=== PATIENT | female | born 1955 | race Caucasian/White ===

== ENCOUNTER 2019-01-25 21:49 | Inpatient (IN) ==
[2019-01-25] MEDS ORDERED: predniSONE 20 MG TABLET PO ONE (21:54)
[2019-01-25] MEDS ORDERED: Ipratropium/Albuterol Neb 3 ML IH ONE (21:54)
--- NOTE | 2019-01-25 21:55 | Emergency Department Note ---
Disposition Clinical Impression: Acute exacerbation of chronic obstructive airways disease Disposition: Admitted As Inpatient Condition: Good Time of Disposition: 06:02 General Adult HPI - General Stated complaint: KEN Time Seen by Provider: 01/25/19 21:52 - Related Data Home Medications Medication Instructions Recorded Confirmed Albuterol Sulfate [Ventolin Hfa] 1 inh IH BID 01/26/19 01/26/19 Citalopram [CeleXA] 10 mg PO DAILY 01/26/19 01/26/19 Fluticasone/Vilanterol [Breo 1 inh IH HS 01/26/19 01/26/19 Ellipta 100-25 Mcg INH] Levothyroxine [Synthroid] 75 mcg PO DAILY 01/26/19 01/26/19 Magnesium Oxide 01/26/19 01/26/19 Tiotropium [Spiriva] 1 inh IH DAILY 01/26/19 01/26/19 Allergies Allergy/AdvReac Type Severity Reaction Status Date / Time No Known Allergies Allergy Verified 07/12/18 12:59 Past Medical History - Past Medical History Medical history: Reports: COPD - Social History Smoking Status: Current every day smoker Alcohol use: Reports: rarely Drug use: Reports: none Course Vital Signs Temperature 97.7 F 01/25/19 21:54 Pulse Rate 98 01/25/19 21:54 Respiratory Rate 18 01/25/19 21:54 Blood Pressure 136/72 01/25/19 21:54 O2 Sat by Pulse Oximetry 89 01/25/19 21:54 Temperature 98.6 F 01/26/19 03:25 Pulse Rate 86 01/26/19 03:25 Respiratory Rate 17 01/26/19 03:25 Blood Pressure 136/76 01/26/19 03:25 O2 Sat by Pulse Oximetry 94 01/26/19 03:25 Oxygen Delivery Oxygen Delivery Nasal Cannula Medical Decision Making - Lab Data Result diagrams: 01/25/19 22:00 01/25/19 22:00 Lab Results 01/25/19 01/25/19 01/25/19 Range/Units 22:00 22:00 22:00 WBC 9.7 (4.3-11.1) K/mcL RBC 4.53 (3.82-4.97) M/mcL Hgb 13.9 (11.5-15.4) g/dL Hct 40.4 (35.3-44.9) % MCV 89.2 (83.0-100.0) fL MCH 30.7 (28.0-33.3) pg MCHC 34.4 (31.6-35.5) g/dL RDW 13.6 (11.5-14.5) % Plt Count 292 (140-400) K/mcL MPV 9.6 (9.4-12.4) fL Immature Gran % 0.4 (0-4) % Seg Neutrophils % 70.9 % Lymphocytes % 18.2 % Monocytes % 9.7 % Eosinophils % 0.5 % Basophils % 0.3 % Neutrophils # 6.9 (1.6-8.9) K/mcL Lymphocytes # 1.8 (0.6-4.6) K/mcL Monocytes # 0.9 (0.0-1.3) K/mcL Eosinophils # 0.1 (0.0-0.6) K/mcL Basophils # 0.0 (0.0-0.2) K/mcL PT 13.4 H (9.4-12.1) Seconds INR 1.2 Sodium 137 (136-145) mEq/L Potassium 2.7 L (3.5-5.1) mEq/L Chloride 95 L (98-107) mEq/L Carbon Dioxide 30 H (23-29) mEq/L BUN 5 L (8-23) mg/dL Creatinine 0.55 L (0.60-1.20) mg/dL Est GFR ( Amer) > 60 (> 60) Est GFR (Non-Af Amer) > 60 (> 60) BUN/Creatinine Ratio 9 (6-26) Glucose 140 H (70-105) mg/dL Calculated Osmolality 284 (280-300) Calcium 8.9 (8.6-10.3) mg/dL Magnesium 1.8 (1.6-2.6) mg/dL Total Bilirubin 0.8 (0.3-1.0) mg/dL AST 18 (13-39) Units/L ALT 23 (7-52) Units/L Alkaline Phosphatase 79 (34-104) Units/L Troponin I 0.04 H* (< 0.04) ng/mL B-Natriuretic Peptide (Less than 100) pg/mL Serum Total Protein 7.0 (6.4-8.9) g/dL Albumin 4.0 (3.5-5.7) g/dL Globulin 3.0 (2.4-3.5) g/dL Albumin/Globulin Ratio 1.3 (1.1-2.2) 01/25/19 Range/Units 22:00 WBC (4.3-11.1) K/mcL RBC (3.82-4.97) M/mcL Hgb (11.5-15.4) g/dL Hct (35.3-44.9) % MCV (83.0-100.0) fL MCH (28.0-33.3) pg MCHC (31.6-35.5) g/dL RDW (11.5-14.5) % Plt Count (140-400) K/mcL MPV (9.4-12.4) fL Immature Gran % (0-4) % Seg Neutrophils % % Lymphocytes % % Monocytes % % Eosinophils % % Basophils % % Neutrophils # (1.6-8.9) K/mcL Lymphocytes # (0.6-4.6) K/mcL Monocytes # (0.0-1.3) K/mcL Eosinophils # (0.0-0.6) K/mcL Basophils # (0.0-0.2) K/mcL PT (9.4-12.1) Seconds INR Sodium (136-145) mEq/L Potassium (3.5-5.1) mEq/L Chloride (98-107) mEq/L Carbon Dioxide (23-29) mEq/L BUN (8-23) mg/dL Creatinine (0.60-1.20) mg/dL Est GFR ( Amer) (> 60) Est GFR (Non-Af Amer) (> 60) BUN/Creatinine Ratio (6-26) Glucose (70-105) mg/dL Calculated Osmolality (280-300) Calcium (8.6-10.3) mg/dL Magnesium (1.6-2.6) mg/dL Total Bilirubin (0.3-1.0) mg/dL AST (13-39) Units/L ALT (7-52) Units/L Alkaline Phosphatase (34-104) Units/L Troponin I (< 0.04) ng/mL B-Natriuretic Peptide 41 (Less than 100) pg/mL Serum Total Protein (6.4-8.9) g/dL Albumin (3.5-5.7) g/dL Globulin (2.4-3.5) g/dL Albumin/Globulin Ratio (1.1-2.2) Attestation Statement - Attestation Attestation: I reviewed the residents documentation and agree with the residents assessment and plan of care. I have personally had face to face time with the patient. (Brief History, Brief Exam, and MDM) I personally supervised and was present for the murrieta/critical portions of the following procedures completed by the resident: (add procedures performed here). [id number] time provided Patient presents acutely dyspneic. She arrives by EMS. She has a history of non-oxygen dependent COPD. Increased work of breathing upon arrival. I attest to supervising the resident physician's interpretation of the ECG
--- NOTE | 2019-01-25 22:03 | Emergency Department Note ---
Disposition Clinical Impression: Acute exacerbation of chronic obstructive airways disease Disposition: Admitted As Inpatient Condition: Good Instructions: Chronic Obstructive Pulmonary Disease (ED) Forms: ED Satisfaction Letter Time of Disposition: 23:45 General Adult HPI - General Chief complaint: ED Shortness of Breath/Dyspnea Stated complaint: KEN Time Seen by Provider: 01/25/19 21:52 Source: patient Mode of arrival: EMS Limitations: no limitations Nursing Notes Reviewed: Yes Vital Signs Reviewed: Yes - History of Present Illness HPI Narrative: Patient is a 63-year-old female with a past medical history of COPD who presents with progressive shortness of breath for the past 4 days. Her shortness of breath worsened acutely today with cough productive of green sputum, wheezing. EMS states that she was satting initially 85%. Patient tried 3 breathing treatments at home. During transport she was satting at 94 to 95%. She did endorse some chest tightness when she was breathing with difficulty. Currently not expressing chest pain. Endorses nausea, vomiting, fevers, chills. Denies any abdominal pain, dysuria, plus patient, diarrhea. Mentions that she has had 2 sick family members with upper respiratory symptoms. Patient has never been intubated before and does not use home oxygen. - Related Data Allergies Allergy/AdvReac Type Severity Reaction Status Date / Time No Known Allergies Allergy Verified 07/12/18 12:59 All systems ED: reviewed and negative except as stated. Review of Systems: As Per HPI Constitutional: Reports: fever, chills. Denies: weakness, weight change Eyes: Denies: eye pain, eye discharge, vision change ENT ED: Denies: ear pain, throat pain, dental pain Cardiovascular: Reports: chest pain, dyspnea on exertion. Denies: palpitations Respiratory: Reports: cough, dyspnea, wheezes Gastrointestinal: Reports: nausea, vomiting. Denies: abdominal pain Genitourinary: Denies: urgency, dysuria, frequency Musculoskeletal: Denies: back pain, neck pain, joint swelling Integumentary: Denies: rash, abrasion, lesions Neurological: Denies: headache, weakness, numbness Psychiatric: Denies: anxiety, depression, suicidal thoughts Endocrine: Denies: fatigue, heat or cold intolerance, polydipsia Past Medical History - Past Medical History Attestation: Yes The following information was validated with the patient. Source: patient Medical history: Reports: COPD - Social History Smoking Status: Current every day smoker Alcohol use: Reports: rarely Drug use: Reports: none Physical Exam GEN: Work of breathing on 2 L nasal cannula no acute distress, conversant. HEENT: NC, AT. MMM. EOMI, clear conjunctiva, oropharynx clear. NECK: Supple without lymphadenopathy. No stiffness or restricted ROM. HEART: Normal rate and regular rhythm, normal S1/S1, no m/r/g LUNGS: Crackles and wheezing diffusely, worse in right lower lung base. ABDOMEN: Soft, nontender, nondistended with good bowel sounds heard. BACK: No CVAT, no obvious deformity. EXTREMITIES: Without cyanosis, clubbing or edema. NEUROLOGICAL: Grossly nonfocal. Alert and oriented, moving all 4 extremities. CN not formally tested but appear grossly intact. Observed to ambulate with normal gait. Skin: Warm and dry without any rash. Course Course Narrative: Patient was seen and examined. Vitals significant for tachycardia in the 100s o therwise afebrile, normotensive, no work of breathing on 2 L. Labs were ordered including CBC, CMP, troponins, BMP. EKG and chest x-ray are obtained. Patient was given 3 of DuoNeb nebs and steroids. - Reevaluation(s) Reevaluation #1: Patient was communicated to the hospitalist. She was accepted for admission. Time: 23:44 Vital Signs Temperature 97.7 F 01/25/19 21:54 Pulse Rate 98 01/25/19 21:54 Respiratory Rate 18 01/25/19 21:54 Blood Pressure 136/72 01/25/19 21:54 O2 Sat by Pulse Oximetry 89 01/25/19 21:54 Temperature 97.7 F 01/25/19 21:54 Pulse Rate 103 01/25/19 22:47 Respiratory Rate 23 01/25/19 22:47 Blood Pressure 148/81 01/25/19 22:47 O2 Sat by Pulse Oximetry 94 01/25/19 22:47 Oxygen Delivery Oxygen Delivery Nasal Cannula Medical Decision Making - [facility] Narrative Medical decision making narrative: Patient is a 63-year-old female presenting with shortness of breath. Differential includes but is not limited to COPD exacerbation, pneumonia, pneumothorax, MN, ACS, dissection. Since labs were remarkable for a troponin 0.04. EKG showed some diffuse ST depressions. She had a potassium of 2.7. Patient did not have a white count. Chest x-ray was unremarkable, with no evidence of focal consolidation or interstitial infiltrates. Low suspicion for pneumonia, pneumothorax, dissection at this time. patient likely has a COPD exacerbation. Low concern for cardiac ischemia at this time given setting of COPD exacerbation. Patient will be admitted to medicine for COPD exacerbation with new oxygen requirement. At transfer patient is satting well on 2 L and resting comfortably. Her lungs sound significantly more clear compared to arrival. Patient was communicated to the hospitalists and accepted for admission. - Medical Records Medical records reviewed: Yes I reviewed the patient's medical records. - Lab Data Lab results reviewed: Yes I reviewed the patient's lab results. Result diagrams: 01/25/19 22:00 01/25/19 22:00 Lab Results 01/25/19 01/25/19 01/25/19 Range/Units 22:00 22:00 22:00 WBC 9.7 (4.3-11.1) K/mcL RBC 4.53 (3.82-4.97) M/mcL Hgb 13.9 (11.5-15.4) g/dL Hct 40.4 (35.3-44.9) % MCV 89.2 (83.0-100.0) fL MCH 30.7 (28.0-33.3) pg MCHC 34.4 (31.6-35.5) g/dL RDW 13.6 (11.5-14.5) % Plt Count 292 (140-400) K/mcL MPV 9.6 (9.4-12.4) fL Immature Gran % 0.4 (0-4) % Seg Neutrophils % 70.9 % Lymphocytes % 18.2 % Monocytes % 9.7 % Eosinophils % 0.5 % Basophils % 0.3 % Neutrophils # 6.9 (1.6-8.9) K/mcL Lymphocytes # 1.8 (0.6-4.6) K/mcL Monocytes # 0.9 (0.0-1.3) K/mcL Eosinophils # 0.1 (0.0-0.6) K/mcL Basophils # 0.0 (0.0-0.2) K/mcL PT 13.4 H (9.4-12.1) Seconds INR 1.2 Sodium 137 (136-145) mEq/L Potassium 2.7 L (3.5-5.1) mEq/L Chloride 95 L (98-107) mEq/L Carbon Dioxide 30 H (23-29) mEq/L BUN 5 L (8-23) mg/dL Creatinine 0.55 L (0.60-1.20) mg/dL Est GFR ( Amer) > 60 (> 60) Est GFR (Non-Af Amer) > 60 (> 60) BUN/Creatinine Ratio 9 (6-26) Glucose 140 H (70-105) mg/dL Calculated Osmolality 284 (280-300) Calcium 8.9 (8.6-10.3) mg/dL Total Bilirubin 0.8 (0.3-1.0) mg/dL AST 18 (13-39) Units/L ALT 23 (7-52) Units/L Alkaline Phosphatase 79 (34-104) Units/L Troponin I 0.04 H* (< 0.04) ng/mL B-Natriuretic Peptide (Less than 100) pg/mL Serum Total Protein 7.0 (6.4-8.9) g/dL Albumin 4.0 (3.5-5.7) g/dL Globulin 3.0 (2.4-3.5) g/dL Albumin/Globulin Ratio 1.3 (1.1-2.2) 01/25/19 Range/Units 22:00 WBC (4.3-11.1) K/mcL RBC (3.82-4.97) M/mcL Hgb (11.5-15.4) g/dL Hct (35.3-44.9) % MCV (83.0-100.0) fL MCH (28.0-33.3) pg MCHC (31.6-35.5) g/dL RDW (11.5-14.5) % Plt Count (140-400) K/mcL MPV (9.4-12.4) fL Immature Gran % (0-4) % Seg Neutrophils % % Lymphocytes % % Monocytes % % Eosinophils % % Basophils % % Neutrophils # (1.6-8.9) K/mcL Lymphocytes # (0.6-4.6) K/mcL Monocytes # (0.0-1.3) K/mcL Eosinophils # (0.0-0.6) K/mcL Basophils # (0.0-0.2) K/mcL PT (9.4-12.1) Seconds INR Sodium (136-145) mEq/L Potassium (3.5-5.1) mEq/L Chloride (98-107) mEq/L Carbon Dioxide (23-29) mEq/L BUN (8-23) mg/dL Creatinine (0.60-1.20) mg/dL Est GFR ( Amer) (> 60) Est GFR (Non-Af Amer) (> 60) BUN/Creatinine Ratio (6-26) Glucose (70-105) mg/dL Calculated Osmolality (280-300) Calcium (8.6-10.3) mg/dL Total Bilirubin (0.3-1.0) mg/dL AST (13-39) Units/L ALT (7-52) Units/L Alkaline Phosphatase (34-104) Units/L Troponin I (< 0.04) ng/mL B-Natriuretic Peptide 41 (Less than 100) pg/mL Serum Total Protein (6.4-8.9) g/dL Albumin (3.5-5.7) g/dL Globulin (2.4-3.5) g/dL Albumin/Globulin Ratio (1.1-2.2) - Radiology Data Radiology results reviewed: Yes I reviewed the patient's radiology results. Chest X-Ray 01/25/19 21:59 IMPRESSION: No acute process. D/ / Ivan Sequeira MD / Ivan Sequeira MD Interpreting Provider: Ivan Sequeira MD - EKG Data EKG #1 EKG attestation: Yes I reviewed and interpreted this EKG. EKG results narrative: EKG was obtained at 2207. My interpretation of EKG shows normal sinus rhythm, no axis deviation, normal intervals, no hypertrophy, diffuse ST depressions in V3, V4, V5, V6. No T-wave inversions. No evidence of WPW, Brugada, HOCM. No prior EKG for comparison.
[2019-01-25 22:22] LABS: Basophils % 0.3 %; Eosinophils # 0.1 K/mcL (0.0-0.6); Eosinophils % 0.5 %; Hematocrit 40.4 % (35.3-44.9); Hemoglobin 13.9 g/dL (11.5-15.4); Immature Granulocytes % 0.4 % (0-4); Lymphocytes # 1.8 K/mcL (0.6-4.6); Lymphocytes % 18.2 %; Mean Corpuscular HGB Conc 34.4 g/dL (31.6-35.5); Mean Corpuscular Hemoglobin 30.7 pg (28.0-33.3); Mean Corpuscular Volume 89.2 fL (83.0-100.0); Mean Platelet Volume 9.6 fL (9.4-12.4); Monocytes # 0.9 K/mcL (0.0-1.3); Monocytes % 9.7 %; Neutrophils # 6.9 K/mcL (1.6-8.9); Platelet Count 292 K/mcL (140-400); Red Blood Count 4.53 M/mcL (3.82-4.97); Red Cell Distribution Width 13.6 % (11.5-14.5); Segmented Neutrophils % 70.9 %; White Blood Count 9.7 K/mcL (4.3-11.1)
[2019-01-25 22:33] LABS: INR 1.2; Prothrombin Time 13.4 Seconds (9.4-12.1)
[2019-01-25 22:47] LABS: Alanine Aminotransferase 23 Units/L (7-52); Albumin/Globulin Ratio 1.3 (1.1-2.2); Alkaline Phosphatase 79 Units/L (34-104); Aspartate Amino Transferase 18 Units/L (13-39); BUN/Creatinine Ratio 9 (6-26); Bilirubin,Total 0.8 mg/dL (0.3-1.0); Blood Urea Nitrogen 5 mg/dL (8-23); Calcium 8.9 mg/dL (8.6-10.3); Carbon Dioxide 30 mEq/L (23-29); Chloride 95 mEq/L (98-107); Glucose 140 mg/dL (70-105); Osmolality,Calculated 284 (280-300); Potassium 2.7 mEq/L (3.5-5.1); Sodium 137 mEq/L (136-145); eGFR For African Americans > 60 (> 60); eGFR For Non-African Americans > 60 (> 60)
[2019-01-25 22:53] LABS: Troponin I 0.04 ng/mL (< 0.04)
[2019-01-25] MEDS ORDERED: Aspirin 325 MG TABLET PO ONE (23:06)
[2019-01-25] MEDS ORDERED: Potassium Chloride Elixir 20 MEQ/15 ML UDC PO ONE (23:06)
[2019-01-25] MEDS ORDERED: Azithromycin 500 MG in D5% in Water 250 ML IVPB ONE (23:43)
[2019-01-26 00:09] LABS: Magnesium 1.8 mg/dL (1.6-2.6)
[2019-01-26] MEDS ORDERED: 0.9 % Sodium Chloride 500 ML IVC SCH (04:15)
[2019-01-26] MEDS ORDERED: Naloxone 0.4 MG/ML INJ IVP PRN (04:30)
[2019-01-26] MEDS ORDERED: 0.9 % Sodium Chloride 1,000 ML IVC SCH (04:30)
--- NOTE | 2019-01-26 04:55 | Internal Med History&Physical ---
Date of Encounter: 01/26/19 Time of Encounter: 04:00 Internal Medicine - H&P: HPI Chief complaint: Shortness of breath Admitted From: Home Plans for Post Hospital Care: Home History of present illness: Ms. Platt is a 63 year old female with past medical history significant for SVT, hyperlipidemia, COPD, thyroid disease, chronic back pain with degenerative disc disease, and anxiety who presents for 3-4 day history of shortness of breath with productive cough getting progressively worse. Reports coughing up yellow/green thick sputum. Has also had associated nausea, vomiting, diarrhea, and diaphoresis. Reports chest pain only with cough and deep breathing. Has tried breathing treatments and dayquil at home without much improvement. ER reported EKG as sinus rhythm with diffuse ST depressions in V3, V4, V5, V6 and no t wave inversions and no EKG available for comparison. ER also obtained chest xray which showed no acute process. Received breathing treatment, antibiotics, potassium replacement, aspirin, and steroids while in ER and currently is reporting improvement in her symptoms. Currently denies any headache, chest pain, shortness of breath, nausea, bowel or bladder changes. Reports following regularly with her PCP and pain management provider. Denies any home oxygen use. Reports recently decreasing amount of cigarettes she has been smoking with hopes to completely quit. Past Med Surg Social Fam HX - Past Medical History Medical history: COPD, hyperlipidemia, SVT, thyroid disease Additional medical history: Chronic back pain with degenerative disc disease Psychiatric history: anxiety - Past Surgical History Surgical History: breast surgery, cholecystectomy - Social History Smoking Status: Current every day smoker Alcohol use: rarely Drug use: none - Family History Father Living Status: Hx Family Cardiac Disorders: Yes Mother Hx Family Cancer: Yes (lung, bone) Internal Medicine - H&P: Meds Albuterol Sulfate [Ventolin Hfa] 1 inh IH BID 01/26/19 [History] Citalopram [CeleXA] 10 mg PO DAILY 01/26/19 [History] Fluticasone/Vilanterol [Breo Ellipta 100-25 Mcg INH] 1 inh IH HS 01/26/19 [History] Levothyroxine [Synthroid] 75 mcg PO DAILY 01/26/19 [History] Magnesium Oxide 01/26/19 [History] Tiotropium [Spiriva] 1 inh IH DAILY 01/26/19 [History] Allergy/AdvReac Type Severity Reaction Status Date / Time No Known Allergies Allergy Verified 07/12/18 12:59 All Systems PM: A 10-system review of systems was performed and is negative for pertinent findings except as documented above in the HPI. - Constitutional Vitals: Temp Pulse Resp BP Pulse Ox 98.6 F 86 17 136/76 94 01/26/19 03:25 01/26/19 03:25 01/26/19 03:25 01/26/19 03:25 01/26/19 03:25 Exam: General: Alert and oriented. In no acute distress. Skin:Normal color, no rash, no lesions. HEENT:Pupils equal, round and reactive. Cardiovascular:Normal S1 & S2, no rubs, murmurs or gallops. No JVD. Pulse regular. Lungs: Breath sounds unlabored and decreased with slight wheezes noted. No crackles. Abdomen:Soft, non-tender, no rigidity. Extremities:No deformity, no edema or tenderness, no joint swelling or clubbing. Neurological:Normal cognition and motor skills. Pulses:Carotid and radial pulses normal +2. Rest of the physical exam is non contributory. Internal Med - H&P Results - Labs CBC & Chem 7: 01/25/19 22:00 01/25/19 22:00 Labs: Short CBC 01/25/19 Range/Units 22:00 WBC 9.7 (4.3-11.1) K/mcL Hgb 13.9 (11.5-15.4) g/dL Hct 40.4 (35.3-44.9) % Plt Count 292 (140-400) K/mcL Neutrophils # 6.9 (1.6-8.9) K/mcL BMP 01/25/19 22:00 Sodium 137 Potassium 2.7 L Chloride 95 L Carbon Dioxide 30 H BUN 5 L Creatinine 0.55 L Glucose 140 H Calcium 8.9 Cardiac Enzymes 01/25/19 Range/Units 22:00 Troponin I 0.04 H* (< 0.04) ng/mL Liver Function 01/25/19 Range/Units 22:00 Total Bilirubin 0.8 (0.3-1.0) mg/dL AST 18 (13-39) Units/L ALT 23 (7-52) Units/L Alkaline Phosphatase 79 (34-104) Units/L Albumin 4.0 (3.5-5.7) g/dL - Impressions ITS Impressions Chest X-Ray 01/25/19 21:59 IMPRESSION: No acute process. D/ / Ivan Sequeira MD / Ivan Sequeira MD Interpreting Provider: Ivan Sequeira MD - Assessment and Plan (1) Shortness of breath Current Visit: Yes Status: Acute Assessment and plan: 3-4 day history of shortness of breath with productive cough getting progressively worse. Chest x-ray showed no acute process. Received azithromycin in ER, will continue same. Antibiotics received in ER prior to blood cultures, will obtain now. Received PO prednisone in ER, will continue same. Received DuoNeb in ER, will continue same schedule. Continue oxygen by nasal cannula to maintain saturations greater than 90%, wean as tolerated. (2) Acute exacerbation of chronic obstructive airways disease Current Visit: Yes Status: Acute Assessment and plan: Suspected cause of shortness of breath. Plan as stated above. (3) Hypokalemia Current Visit: Yes Status: Acute Assessment and plan: Potassium in ER was 2.7 Oral and IV replacement ordered in ER. Continuous cardiac monitoring. Repeat labs ordered. (4) Elevated troponin Current Visit: Yes Status: Acute Assessment and plan: Initial troponin in ER showed 0.04 Reports chest pain only with coughing and deep breathing. Serial troponins ordered. (5) Tobacco abuse Current Visit: Yes Status: Chronic Assessment and plan: Reports recent decrease in her cigarette smoking. Cessation strongly encouraged. - Time Spent With Patient Total time spent is greater than 50% in coordination of care (as documented) at patient's floor/unit and/or counseling patient:
[2019-01-26] MEDS ORDERED: GuaiFENesin Liq 200 MG/10 ML UDC PO PRN (05:08)
[2019-01-26 07:28] LABS: Basophils % 0.2 %; Hematocrit 42.2 % (35.3-44.9); Hemoglobin 13.9 g/dL (11.5-15.4); Immature Granulocytes % 0.7 % (0-4); Lymphocytes # 0.8 K/mcL (0.6-4.6); Mean Corpuscular HGB Conc 32.9 g/dL (31.6-35.5); Mean Corpuscular Hemoglobin 30.2 pg (28.0-33.3); Mean Corpuscular Volume 91.5 fL (83.0-100.0); Mean Platelet Volume 9.9 fL (9.4-12.4); Monocytes # 0.3 K/mcL (0.0-1.3); Monocytes % 2.5 %; Neutrophils # 8.9 K/mcL (1.6-8.9); Platelet Count 313 K/mcL (140-400); Red Blood Count 4.61 M/mcL (3.82-4.97); Red Cell Distribution Width 13.8 % (11.5-14.5); Segmented Neutrophils % 88.6 %
[2019-01-26 07:51] LABS: BUN/Creatinine Ratio 7 (6-26); Blood Urea Nitrogen 5 mg/dL (8-23); Carbon Dioxide 32 mEq/L (23-29); Chloride 93 mEq/L (98-107); Glucose 177 mg/dL (70-105); Osmolality,Calculated 288 (280-300); Potassium 3.5 mEq/L (3.5-5.1); Sodium 138 mEq/L (136-145); eGFR For African Americans > 60 (> 60); eGFR For Non-African Americans > 60 (> 60)
[2019-01-26] MEDS ORDERED: predniSONE 20 MG TABLET PO SCH (09:00)
[2019-01-26] MEDS ORDERED: Ipratropium/Albuterol Neb 3 ML IH SCH (10:00)
[2019-01-26 10:22] LABS: Adenovirus Not Detected (Not Detect); Bordetella Pertussis Not Detected (Not Detect); Chlamydophila pneumoniae Not Detected (Not Detect); Coronavirus 229E Not Detected (Not Detect); Coronavirus HKU1 Not Detected (Not Detect); Coronavirus NL63 Not Detected (Not Detect); Coronavirus OC43 Not Detected (Not Detect); Human Metapneumovirus Not Detected (Not Detect); Human Rhinovirus/Enterovirus Not Detected (Not Detect); Influenza A Subtype 2009 H1 Not Detected (Not Detect); Influenza A Untypeable Not Detected (Not Detect); Influenza B Not Detected (Not Detect); Mycoplasma pneumoniae Not Detected (Not Detect); Parainfluenza Virus 1 Not Detected (Not Detect); Parainfluenza Virus 2 Not Detected (Not Detect); Parainfluenza Virus 3 Not Detected (Not Detect); Parainfluenza Virus 4 Not Detected (Not Detect); Respiratory Syncytial Virus Not Detected (Not Detect)
--- NOTE | 2019-01-26 13:43 | Internal Med Progress Note ---
Hospitalist Progress Note - Encounter Date of Encounter: 01/26/19 Time of Encounter: 11:00 - Subjective Interval History: Pt was seen and examined at bed side She is still having severe SOB and IBARRA She does have cough with expectoration She denied any CP. - Exam Vitals: Temp Pulse Resp BP Pulse Ox 97.6 F 83 94 122/79 94 01/26/19 11:58 01/26/19 11:58 01/26/19 11:58 01/26/19 11:58 01/26/19 10:08 Exam: Gen: Alert, awake, Oriented to time,place and person Chest: Diminished breath sounds B/L, Moderate to severe wheezing, No crackles, No rales Heart: S1S2+ RRR No murmurs Abd: Soft, NT, BS +, No organomegaly Ext: No edema, pulses are palpable, No calf tenderness Neuro : No acute focal neuro deficits noticed Skin: No rash. - Assessment and Plan (1) Acute exacerbation of chronic obstructive airways disease Current Visit: Yes Status: Acute Assessment and Plan: Since pt still has severe wheezing and acute hypoxia will start her on high dose IV steroids will check sputum cx, strep PNA and Legionella will cont frequent bronchodilator therapy continue empirical antibiotic azithromycin (2) Acute respiratory failure with hypoxia Current Visit: Yes Status: Acute Assessment and Plan: Due to COPD exacerbation with bronchitis currently on3 lit O2 may need home O2 eval Patient does need to stay in the hospital more than 2 midnights due to her complex medical problems. So we will change her to full admission today. I did review my colleague LEANDRO Meneses's H & P including HPI, PMH, PSH, FH, SH, and ROS no changes noticed (3) Acute bronchitis Current Visit: Yes Status: Acute Assessment and Plan: will check resp viral panel She does have purulent bronchitis cont empirical abx Azithromycin (4) Hypokalemia Current Visit: Yes Status: Acute Assessment and Plan: Improved (5) Elevated troponin Current Visit: Yes Status: Acute Assessment and Plan: trop slightly elevated @ 0.04 and stable mostly due to demand ischemia no further work up needed (6) Tobacco abuse Current Visit: Yes Status: Chronic Assessment and Plan: Reports recent decrease in her cigarette smoking. Counseled to quit smoking placed on nicotine patch - Time Spent with Patient Total time spent is greater than 50% in coordination of care (as documented) at patient's floor/unit and/or counseling patient: Internal Medicine: Result - Labs CBC & Chem 7: 01/26/19 06:56 01/26/19 06:56 Labs: Short CBC 01/25/19 01/26/19 Range/Units 22:00 06:56 WBC 9.7 10.0 (4.3-11.1) K/mcL Hgb 13.9 13.9 (11.5-15.4) g/dL Hct 40.4 42.2 (35.3-44.9) % Plt Count 292 313 (140-400) K/mcL Neutrophils # 6.9 8.9 (1.6-8.9) K/mcL BMP 01/25/19 01/26/19 22:00 06:56 Sodium 137 138 Potassium 2.7 L 3.5 D Chloride 95 L 93 L Carbon Dioxide 30 H 32 H BUN 5 L 5 L Creatinine 0.55 L 0.69 Glucose 140 H 177 H Calcium 8.9 9.0 Cardiac Enzymes 01/25/19 01/26/19 01/26/19 Range/Units 22:00 06:56 10:44 Troponin I 0.04 H* 0.04 H* 0.03 (< 0.04) ng/mL Liver Function 01/25/19 Range/Units 22:00 Total Bilirubin 0.8 (0.3-1.0) mg/dL AST 18 (13-39) Units/L ALT 23 (7-52) Units/L Alkaline Phosphatase 79 (34-104) Units/L Albumin 4.0 (3.5-5.7) g/dL - ABG Interpretation ABG results: PT/INR, D-dimer PT 13.4 Seconds (9.4-12.1) H 01/25/19 22:00 - Impressions Impressions Chest X-Ray 01/25/19 21:59 IMPRESSION: No acute process. D/ / Ivan Sequeira MD / Ivan Sequeira MD Interpreting Provider: Ivan Sequeira MD Consult Discharge Plan - Plan Referrals: Aneesh Orta DO [Primary Care Provider] - (3) Acute bronchitis Qualifiers: Bronchitis organism: unspecified organism Qualified Code(s): J20.9 - Acute bronchitis, unspecified
[2019-01-26] MEDS: Nicotine 14 MG PATCH.TD24 TD SCH (15:58)
[2019-01-26] MEDS: MethylPREDNISolone 40 MG/ML VIAL IVP SCH ×2 (15:58→23:10)
[2019-01-26] MEDS: Ipratropium/Albuterol Neb 3 ML IH SCH ×3 (16:01→23:20)
--- NOTE | 2019-01-26 16:41 | Electrocardiograph Report ---
[place] [id number] Test Date: 2019-01-25 Pat Name: Carlotta Platt Department: EXAM6 Room: 3B Gender: F [employer]anthropy Officer: : 1955 Requested By: Lars Bellamy Order Number: [id number] Reading MD: Chuck Burkett Measurements Intervals [place] Rate: 94 P: 0 CT: 72 QRS: 27 QRSD: 66 T: QT: 530 QTc: 663 Interpretive Statements Sinus rhythm Short CT interval Prolonged QT interval Nonspecific ST-T changes Electronically Signed On 01-26-2019 16:40:20 EDT by Chuck Burkett
[2019-01-26] MEDS: Azithromycin 500 MG in D5% in Water 250 ML IVPB SCH (23:09)
[2019-01-27] MEDS: Ipratropium/Albuterol Neb 3 ML IH SCH ×6 (04:09→23:39)
[2019-01-27 04:58] LABS: BUN/Creatinine Ratio 13 (6-26); Blood Urea Nitrogen 8 mg/dL (8-23); Calcium 9.4 mg/dL (8.6-10.3); Carbon Dioxide 31 mEq/L (23-29); Chloride 93 mEq/L (98-107); Glucose 235 mg/dL (70-105); Osmolality,Calculated 290 (280-300); Potassium 3.2 mEq/L (3.5-5.1); Sodium 137 mEq/L (136-145); eGFR For African Americans > 60 (> 60); eGFR For Non-African Americans > 60 (> 60)
[2019-01-27] MEDS: MethylPREDNISolone 40 MG/ML VIAL IVP SCH ×2 (07:09→17:13)
[2019-01-27] MEDS: Nicotine 14 MG PATCH.TD24 TD SCH (07:09)
[2019-01-27] MEDS ORDERED: NON-FORMULARY MEDICATION 1 EACH EACH (Fluticasone/Vilanterol [Breo Ellipta 100-25 Mcg Inh] IH SCH (09:00)
[2019-01-27] MEDS: Magnesium Oxide 400 MG TABLET PO SCH (09:31)
[2019-01-27] MEDS: Budesonide/Formoterol 80/4.5 MDI IH SCH ×2 (11:00→20:09)
--- NOTE | 2019-01-27 13:11 | Internal Med Progress Note ---
Hospitalist Progress Note - Encounter Date of Encounter: 01/27/19 Time of Encounter: 10:30 - Subjective Interval History: Ms. Platt is a 63 year old female with past medical history significant for SVT, hyperlipidemia, COPD, thyroid disease, chronic back pain with degenerative disc disease, anxiety and chronic tobacco dependence pt presented to ER with 3-4 day history of shortness of breath with productive cough getting progressively worse. Reported coughing up yellow/green thick sputum. She was admitted in the hospital and placed her on tele. She denied any more CP. Her troponin trended down to normal. She still has cough with greenish expec toration. She still has moderate SOB and IBARRA. She is currently on 2 lit O2 through [place]. - Exam Vitals: Temp Pulse Resp BP Pulse Ox 97.7 F 101 15 138/76 89 01/27/19 11:40 01/27/19 11:40 01/27/19 11:40 01/27/19 11:40 01/27/19 11:40 Exam: Gen: Alert, awake, Oriented to time,place and person Chest: Diminished breath sounds B/L, Moderate to severe wheezing, No crackles, No rales Heart: S1S2+ RRR No murmurs Abd: Soft, NT, BS +, No organomegaly Ext: No edema, pulses are palpable, No calf tenderness Neuro : No acute focal neuro deficits noticed Skin: No rash. - Assessment and Plan (1) Acute exacerbation of chronic obstructive airways disease Current Visit: Yes Status: Acute Assessment and Plan: Slowly improving Sputum cx - gram staining showed few bacteria Strep PNA and Legionella are negative Cont frequent bronchodilator therapy Continue empirical antibiotic azithromycin (2) Acute respiratory failure with hypoxia Current Visit: Yes Status: Acute Assessment and Plan: Due to COPD exacerbation with bronchitis currently on 2 lit O2 may need home O2 eval Patient does need to stay in the hospital more than 2 midnights due to her complex medical problems. So we will change her to full admission today. I did review my colleague LEANDRO Meneses's H & P including HPI, PMH, PSH, FH, SH, and ROS no changes noticed (3) Acute bronchitis Current Visit: Yes Status: Acute Assessment and Plan: She does have purulent bronchitis Sputum gram staining showed few bacteria cont empirical abx Azithromycin (4) Elevated troponin Current Visit: Yes Status: Acute Assessment and Plan: Initial trop slightly elevated @ 0.04 and now trended down mostly due to demand ischemia no further work up needed (5) Hypokalemia Current Visit: Yes Status: Acute Assessment and Plan: Improved (6) Tobacco abuse Current Visit: Yes Status: Chronic Assessment and Plan: Reports recent decrease in her cigarette smoking. Counseled to quit smoking placed on nicotine patch - Time Spent with Patient Total time spent is greater than 50% in coordination of care (as documented) at patient's floor/unit and/or counseling patient: Internal Medicine: Result - Labs CBC & Chem 7: 01/26/19 06:56 01/27/19 03:34 Labs: BMP 01/27/19 03:34 Sodium 137 Potassium 3.2 L Chloride 93 L Carbon Dioxide 31 H BUN 8 Creatinine 0.62 Glucose 235 H Calcium 9.4 - ABG Interpretation ABG results: PT/INR, D-dimer PT 13.4 Seconds (9.4-12.1) H 01/25/19 22:00 Consult Discharge Plan - Plan Referrals: Aneesh Orta DO [Primary Care Provider] - (3) Acute bronchitis Qualifiers: Bronchitis organism: unspecified organism Qualified Code(s): J20.9 - Acute bronchitis, unspecified
[2019-01-27] MEDS: *HR* Heparin 5,000 UNIT/ML VIAL SQ SCH (17:13)
[2019-01-27] MEDS: Menthol 9.1 MG LOZENGE PO PRN ×2 (20:41→23:15)
[2019-01-27] MEDS: Azithromycin 500 MG in D5% in Water 250 ML IVPB SCH (23:13)
[2019-01-28] MEDS: Menthol 9.1 MG LOZENGE PO PRN ×3 (02:58→22:20)
[2019-01-28] MEDS: Ipratropium/Albuterol Neb 3 ML IH SCH ×7 (04:25→23:41)
[2019-01-28] MEDS: *HR* Heparin 5,000 UNIT/ML VIAL SQ SCH ×2 (05:25→17:31)
[2019-01-28] MEDS: MethylPREDNISolone 40 MG/ML VIAL IVP SCH ×2 (05:26→17:31)
[2019-01-28] MEDS: Budesonide/Formoterol 80/4.5 MDI IH SCH ×2 (07:30→19:44)
[2019-01-28] MEDS: Magnesium Oxide 400 MG TABLET PO SCH (08:40)
[2019-01-28] MEDS: Nicotine 14 MG PATCH.TD24 TD SCH (08:40)
--- NOTE | 2019-01-28 14:36 | Internal Med Progress Note ---
Hospitalist Progress Note - Encounter Date of Encounter: 01/28/19 Time of Encounter: 09:15 - Subjective Interval History: Ms. Platt is a 63 year old female with past medical history significant for SVT, hyperlipidemia, COPD, thyroid disease, chronic back pain with degenerative disc disease, anxiety and chronic tobacco dependence pt presented to ER with 3-4 day history of shortness of breath with productive cough getting progressively worse. Reported coughing up yellow/green thick sputum. She was admitted in the hospital and placed her on tele. She denied any more CP. Her troponin trended down to normal. She still has cough with greenish expec toration. She still has moderate SOB and IBARRA. She is currently on 2 lit O2 through [place]. No events over night - Exam Vitals: Temp Pulse Resp BP Pulse Ox 97.7 F 86 16 134/74 96 01/28/19 11:10 01/28/19 11:10 01/28/19 14:02 01/28/19 14:02 01/28/19 14:02 Exam: Gen: Alert, awake, Oriented to time,place and person Chest: Diminished breath sounds B/L, Moderate to severe wheezing, No crackles, No rales Heart: S1S2+ RRR No murmurs Abd: Soft, NT, BS +, No organomegaly Ext: No edema, pulses are palpable, No calf tenderness Neuro : No acute focal neuro deficits noticed Skin: No rash. - Assessment and Plan (1) Acute exacerbation of chronic obstructive airways disease Current Visit: Yes Status: Acute Assessment and Plan: Slowly improving Sputum cx - gram staining showed few bacteria Strep PNA and Legionella are negative Cont frequent bronchodilator therapy Continue empirical antibiotic azithromycin (2) Acute respiratory failure with hypoxia Current Visit: Yes Status: Acute Assessment and Plan: Due to COPD exacerbation with bronchitis currently on 2 lit O2 may need home O2 eval (3) Acute bronchitis Current Visit: Yes Status: Acute Assessment and Plan: She does have purulent bronchitis Sputum gram staining showed few bacteria cont empirical abx Azithromycin (4) Elevated troponin Current Visit: Yes Status: Acute Assessment and Plan: Initial trop slightly elevated @ 0.04 and now trended down mostly due to demand ischemia no further work up needed (5) Hypokalemia Current Visit: Yes Status: Acute Assessment and Plan: Improved (6) Tobacco abuse Current Visit: Yes Status: Chronic Assessment and Plan: Reports recent decrease in her cigarette smoking. Counseled to quit smoking placed on nicotine patch - Time Spent with Patient Total time spent is greater than 50% in coordination of care (as documented) at patient's floor/unit and/or counseling patient: Internal Medicine: Result - Labs CBC & Chem 7: 01/26/19 06:56 01/27/19 03:34 - ABG Interpretation ABG results: PT/INR, D-dimer PT 13.4 Seconds (9.4-12.1) H 01/25/19 22:00 Consult Discharge Plan - Plan Referrals: Aneesh Orta DO [Primary Care Provider] - (3) Acute bronchitis Qualifiers: Bronchitis organism: unspecified organism Qualified Code(s): J20.9 - Acute bronchitis, unspecified
[2019-01-28] MEDS: Azithromycin 500 MG in D5% in Water 250 ML IVPB SCH (22:19)
[2019-01-29] MEDS: Ipratropium/Albuterol Neb 3 ML IH SCH ×3 (03:40→11:22)
[2019-01-29] MEDS: MethylPREDNISolone 40 MG/ML VIAL IVP SCH (05:32)
[2019-01-29] MEDS: *HR* Heparin 5,000 UNIT/ML VIAL SQ SCH (05:32)
[2019-01-29] MEDS ORDERED: Regadenoson 0.4 MG/5 ML SYRINGE IVP ONE (06:16)
[2019-01-29] MEDS: Nicotine 14 MG PATCH.TD24 TD SCH (09:19)
[2019-01-29] MEDS: Magnesium Oxide 400 MG TABLET PO SCH (09:19)
[2019-01-29 11:13] VITALS: BP 176/79
[2019-01-29] MEDS: Budesonide/Formoterol 80/4.5 MDI IH SCH (11:22)
--- NOTE | 2019-01-29 11:55 | Discharge Summary ---
- NOTES TO OUTPATIENT PROVIDER Notes to Outpatient Provider: f/u with PCP in one week. Please quit smoking. Please wear O2 all the time. Orders not resulted at time of discharge: Pending orders 01/26/19 07:57 Culture,Sputum with Gram Stain [RM] Routine Date of Encounter: 01/29/19 Time of Encounter: 11:53 - Discharge Diagnosis (1) Acute exacerbation of chronic obstructive airways disease Priority: Primary Status: Acute (2) Acute respiratory failure with hypoxia Priority: Primary Status: Acute (3) Acute bronchitis Priority: Primary Status: Acute Qualifiers: Bronchitis organism: unspecified organism Qualified Code(s): J20.9 - Acute bronchitis, unspecified (4) Elevated troponin Priority: Secondary Status: Acute (5) Hypokalemia Priority: Secondary Status: Acute (6) Tobacco abuse Priority: Secondary Status: Chronic Hospital course: Ms. Platt is a 63 year old female with past medical history significant for SVT, hyperlipidemia, COPD, thyroid disease, chronic back pain with degenerative disc disease, anxiety and chronic tobacco dependence pt presented to ER with 3-4 day history of shortness of breath with productive cough getting progressively worse. Reported coughing up yellow/green thick sputum. She was admitted in the hospital and placed her on tele. She denied any more CP. Her troponin trended down to normal.Her EKG di dnot show any acute ischemic changes. She did got nuclear stress test which came back as negative for ischemia / infarction. She was started on high dose IV steroids and empirical abx. Her symptoms started improving slowly. she is still hypoxic and required O2 even at rest. CM arranging for Home O2. Will d/c the pt home in stable condition today. - Time Spent with Patient Total time spent providing and/or coordinating discharge services: - Discharge Medications Prescriptions: New Metoprolol [Lopressor] 25 mg PO BID #60 tablet Nicotine Patch [Nicoderm] 14 mg TD DAILY #30 patch.td24 predniSONE [PredniSONE] 40 mg PO DAILY #10 tablet GuaiFENesin/Dextromethorphan [Robitussin/Dm] 10 ml PO Q6HR PRN #240 ml PRN Reason: Cough Continued Albuterol Sulfate [Ventolin Hfa] 2 inh IH QID Levothyroxine [Synthroid] 75 mcg PO QAM Fluticasone/Vilanterol [Breo Ellipta 100-25 Mcg INH] 1 puff IH HS Citalopram [CeleXA] 10 mg PO DAILY Magnesium Oxide [Magnesium] 400 mg PO DAILY Tiotropium [place] [Spiriva Respimat] 2 puff IH DAILY Home Medications: Albuterol Sulfate [Ventolin Hfa] 2 inh IH QID 01/26/19 [History] Citalopram [CeleXA] 10 mg PO DAILY 01/26/19 [History] Fluticasone/Vilanterol [Breo Ellipta 100-25 Mcg INH] 1 puff IH HS 01/26/19 [H istory] Levothyroxine [Synthroid] 75 mcg PO QAM 01/26/19 [History] Magnesium Oxide [Magnesium] 400 mg PO DAILY 01/26/19 [History] Tiotropium [place] [Spiriva Respimat] 2 puff IH DAILY 01/26/19 [History] GuaiFENesin/Dextromethorphan [Robitussin/Dm] 10 ml PO Q6HR PRN #240 ml 01/29/19 [Rx] Metoprolol [Lopressor] 25 mg PO BID #60 tablet 01/29/19 [Rx] Nicotine Patch [Nicoderm] 14 mg TD DAILY #30 patch.td24 01/29/19 [Rx] predniSONE [PredniSONE] 40 mg PO DAILY #10 tablet 01/29/19 [Rx] Allergies/Adverse Reactions: Allergy/AdvReac Type Severity Reaction Status Date / Time No Known Allergies Allergy Verified 07/12/18 12:59 Date of admission: 01/27/19 12:46 Primary care physician: Aneesh Orta DO Consults: 01/26/19 09:42 Consult to Nurse Navigator [CONS] Routine Comment: COPD - Constitutional Vitals: Temp Pulse Resp BP Pulse Ox 98.3 F 90 18 176/79 94 01/29/19 11:10 01/29/19 11:10 01/29/19 11:24 01/29/19 11:10 01/29/19 11:24 General appearance: Present: cooperative, A&O X 3, no acute distress, answers questions appropriately Exam: Gen: Alert, awake, Oriented to time,place and person Chest: Diminished breath sounds B/L, Mild to moderate wheezing, No crackles, No rales Heart: S1S2+ RRR No murmurs Abd: Soft, NT, BS +, No organomegaly Ext: No edema, pulses are palpable, No calf tenderness Neuro : No acute focal neuro deficits noticed Skin: No rash. - Patient Status Disposition: Home, Self-Care Condition: Good Overall status at discharge: patient is back to baseline - Discharge Instructions Follow Up With: Aneesh Orta DO [Primary Care Provider] - 02/04/19 9:00 am Additional Instructions: Home oxygen has been set up through [employer]. Call them when you get home to have equipment delivered. Their number is #[phone]. - Diet and Activity Activity: increase activity as tolerated, wear oxygen at all times Diet: low salt diet
== END 2019-01-29 13:35 | disposition home or self-care (01) | DRG 140 ==
LOC: EMEROOARM 21:49 → 3BNU 21:49 → SUATTDRO 01-26 00:07 → 3BNU 01-26 03:11
PROVIDERS: ADMIT Pediatrics; ATTEND Family Medicine

== ENCOUNTER 2019-06-02 06:35 | Observation (INO) ==
[2019-06-02 07:46] LABS: Basophils % 0.3 %; Eosinophils # 0.2 K/mcL (0.0-0.6); Eosinophils % 1.6 %; Hematocrit 40.7 % (35.3-44.9); Hemoglobin 14.1 g/dL (11.5-15.4); Immature Granulocytes % 0.4 % (0-4); Lymphocytes # 1.7 K/mcL (0.6-4.6); Lymphocytes % 13.5 %; Mean Corpuscular HGB Conc 34.6 g/dL (31.6-35.5); Mean Corpuscular Hemoglobin 33.3 pg (28.0-33.3); Mean Corpuscular Volume 96.2 fL (83.0-100.0); Mean Platelet Volume 10.4 fL (9.4-12.4); Monocytes # 0.8 K/mcL (0.0-1.3); Monocytes % 6.3 %; Neutrophils # 9.9 K/mcL (1.6-8.9); Platelet Count 268 K/mcL (140-400); Red Blood Count 4.23 M/mcL (3.82-4.97); Red Cell Distribution Width 13.6 % (11.5-14.5); Segmented Neutrophils % 77.9 %; White Blood Count 12.7 K/mcL (4.3-11.1)
[2019-06-02 07:47] LABS: Prothrombin Time 11.5 Seconds (9.4-12.1)
[2019-06-02 07:49] LABS: Activated Partial Thrombo Time 32.3 Seconds (26.0-36.0)
[2019-06-02 07:56] LABS: Alanine Aminotransferase 18 Units/L (7-52); Albumin 4.1 g/dL (3.5-5.7); Albumin/Globulin Ratio 1.6 (1.1-2.2); Alkaline Phosphatase 69 Units/L (34-104); Aspartate Amino Transferase 17 Units/L (13-39); BUN/Creatinine Ratio 13 (6-26); Bilirubin,Direct 0.1 mg/dL (0.0-0.2); Bilirubin,Indirect 0.3 mg/dL (0.0-1.0); Bilirubin,Total 0.4 mg/dL (0.3-1.0); Blood Urea Nitrogen 9 mg/dL (8-23); Calcium 9.2 mg/dL (8.6-10.3); Carbon Dioxide 30 mEq/L (23-29); Chloride 101 mEq/L (98-107); Globulin 2.5 g/dL (2.4-3.5); Glucose 139 mg/dL (70-105); Osmolality,Calculated 293 (280-300); Potassium 3.5 mEq/L (3.5-5.1); Sodium 141 mEq/L (136-145); Total Protein 6.6 g/dL (6.4-8.9); Troponin I < 0.03 ng/mL (< 0.04); eGFR For African Americans > 60 (> 60); eGFR For Non-African Americans > 60 (> 60)
[2019-06-02] MEDS: Nitroglycerin 0.4 MG TAB.SUBL SL SCH ×3 (08:08→10:25)
[2019-06-02] MEDS ORDERED: Naloxone 0.4 MG/ML INJ IVP PRN (08:36)
[2019-06-02] MEDS ORDERED: Magnesium Oxide 400 MG TABLET PO PRN (09:02)
[2019-06-02] MEDS ORDERED: Gabapentin 100 MG CAPSULE PO PRN (09:02)
[2019-06-02] MEDS: Tiotropium 18 MCG inhalation IH SCH (10:24)
[2019-06-02] MEDS: Aspirin 81 MG TAB.CHEW PO SCH (10:26)
[2019-06-02] MEDS: Nitroglycerin 0.4 MG TAB.SUBL SL PRN ×3 (12:34→19:58)
[2019-06-02] MEDS ORDERED: Perflutren Lipid Microsphere 1.3 ML in 0.9 % Sodium Chloride 8.7 ML IVP ONE (22:27)
[2019-06-03 05:28] LABS: Basophils % 0.7 %; Eosinophils # 0.2 K/mcL (0.0-0.6); Eosinophils % 3.1 %; Hematocrit 36.4 % (35.3-44.9); Immature Granulocytes % 0.2 % (0-4); Lymphocytes # 1.6 K/mcL (0.6-4.6); Lymphocytes % 28.2 %; Mean Corpuscular HGB Conc 33.8 g/dL (31.6-35.5); Mean Corpuscular Hemoglobin 32.4 pg (28.0-33.3); Mean Corpuscular Volume 95.8 fL (83.0-100.0); Monocytes # 0.5 K/mcL (0.0-1.3); Monocytes % 8.8 %; Neutrophils # 3.4 K/mcL (1.6-8.9); Platelet Count 229 K/mcL (140-400); Red Cell Distribution Width 13.7 % (11.5-14.5)
[2019-06-03 05:30] LABS: Hemoglobin 12.3 g/dL (11.5-15.4); White Blood Count 5.8 K/mcL (4.3-11.1)
[2019-06-03] MEDS: Nitroglycerin 0.4 MG TAB.SUBL SL PRN ×2 (05:38→05:47)
[2019-06-03 05:51] LABS: Chol/HDL Ratio 5.3 (0-4.9)
[2019-06-03 05:52] LABS: BUN/Creatinine Ratio 11 (6-26); Blood Urea Nitrogen 6 mg/dL (8-23); Calcium 8.9 mg/dL (8.6-10.3); Carbon Dioxide 30 mEq/L (23-29); Chloride 101 mEq/L (98-107); Glucose 100 mg/dL (70-105); Osmolality,Calculated 288 (280-300); Potassium 3.6 mEq/L (3.5-5.1); Sodium 140 mEq/L (136-145); eGFR For African Americans > 60 (> 60); eGFR For Non-African Americans > 60 (> 60)
[2019-06-03] MEDS ORDERED: *HR* Enoxaparin 40 MG/0.4 ML SYRINGE SQ SCH (06:00)
[2019-06-03] MEDS: Tiotropium 18 MCG inhalation IH SCH (08:01)
[2019-06-03] MEDS: Aspirin 81 MG TAB.CHEW PO SCH (08:46)
[2019-06-03] MEDS ORDERED: Loratadine 10 MG TABLET PO SCH (09:00)
[2019-06-03 10:40] LABS: Lipase 16 Units/L (11-82)
[2019-06-03 11:34] VITALS: BP 146/70
== END 2019-06-03 13:06 | disposition home or self-care (01) ==
LOC: EMEROOARM 06:35 → CDU 06:35 → 3BNU 15:51
PROVIDERS: ADMIT Internal Medicine; ATTEND Internal Medicine

== ENCOUNTER 2020-05-05 03:47 | Observation (INO) ==
[2020-05-05 04:26] LABS: Basophils % 0.3 %; Eosinophils # 0.3 K/mcL (0.0-0.6); Eosinophils % 2.9 %; Hematocrit 40.5 % (35.3-44.9); Hemoglobin 13.5 g/dL (11.5-15.4); Immature Granulocytes % 0.3 % (0-4); Lymphocytes % 19.1 %; Mean Corpuscular HGB Conc 33.3 g/dL (31.6-35.5); Mean Corpuscular Hemoglobin 34.1 pg (28.0-33.3); Mean Corpuscular Volume 102.3 fL (83.0-100.0); Mean Platelet Volume 9.6 fL (9.4-12.4); Monocytes # 0.9 K/mcL (0.0-1.3); Monocytes % 8.2 %; Neutrophils # 7.2 K/mcL (1.6-8.9); Platelet Count 246 K/mcL (140-400); Red Blood Count 3.96 M/mcL (3.82-4.97); Red Cell Distribution Width 13.2 % (11.5-14.5); Segmented Neutrophils % 69.2 %; White Blood Count 10.4 K/mcL (4.3-11.1)
[2020-05-05 04:50] LABS: BUN/Creatinine Ratio 12 (6-26); Blood Urea Nitrogen 7 mg/dL (8-23); Carbon Dioxide 34 mEq/L (23-29); Chloride 99 mEq/L (98-107); Glucose 141 mg/dL (70-105); Osmolality,Calculated 288 (280-300); Potassium 3.3 mEq/L (3.5-5.1); Sodium 139 mEq/L (136-145); eGFR For African Americans > 60 (> 60); eGFR For Non-African Americans > 60 (> 60)
[2020-05-05 04:51] LABS: Troponin I < 0.03 ng/mL (< 0.04)
[2020-05-05 05:04] LABS: Thyroid Stimulating Hormone 10.107 mcIU/mL (0.340-5.600)
[2020-05-05] MEDS ORDERED: Aspirin 81 MG TAB.CHEW PO ONE (06:07)
[2020-05-05] MEDS ORDERED: Naloxone 0.4 MG/ML INJ IVP PRN (07:40)
[2020-05-05] MEDS ORDERED: Acetaminophen 325 MG TABLET PO PRN (07:40)
[2020-05-05] MEDS ORDERED: Ondansetron 4 MG/2 ML VIAL IVP PRN (07:40)
[2020-05-05 08:56] VITALS: BP 114/72
[2020-05-05] MEDS ORDERED: Ipratropium/Albuterol Neb 3 ML IH PRN (11:24)
[2020-05-05] MEDS ORDERED: Budesonide/Formoterol 160/4.5 1 PUFF INH IH SCH (11:30)
[2020-05-05] MEDS ORDERED: Regadenoson 0.4 MG/5 ML SYRINGE IVP ONE (12:11)
[2020-05-06] MEDS ORDERED: Tiotropium 18 MCG inhalation IH SCH (10:00)
== END 2020-05-05 16:15 | disposition home or self-care (01) ==
LOC: EMEROOARM 03:47 → 3BNU 03:47
PROVIDERS: ADMIT Internal Medicine; ATTEND Internal Medicine

== ENCOUNTER 2020-12-17 16:02 | Observation (INO) ==
[2020-12-17] MEDS ORDERED: Ipratropium/Albuterol Neb 3 ML IH ONE (16:12)
[2020-12-17 16:26] LABS: Basophils # 0.1 K/mcL (0.0-0.2); Basophils % 0.6 %; Eosinophils # 0.3 K/mcL (0.0-0.6); Eosinophils % 3.3 %; Hemoglobin 13.3 g/dL (11.5-15.4); Immature Granulocytes % 0.4 % (0-4); Lymphocytes # 1.7 K/mcL (0.6-4.6); Lymphocytes % 18.5 %; Mean Corpuscular HGB Conc 33.3 g/dL (31.6-35.5); Mean Corpuscular Hemoglobin 34.7 pg (28.0-33.3); Mean Corpuscular Volume 104.4 fL (83.0-100.0); Mean Platelet Volume 9.9 fL (9.4-12.4); Monocytes # 0.7 K/mcL (0.0-1.3); Monocytes % 8.1 %; Neutrophils # 6.3 K/mcL (1.6-8.9); Platelet Count 302 K/mcL (140-400); Red Blood Count 3.83 M/mcL (3.82-4.97); Red Cell Distribution Width 13.3 % (11.5-14.5); Segmented Neutrophils % 69.1 %; White Blood Count 9.1 K/mcL (4.3-11.1)
[2020-12-17 16:52] LABS: BUN/Creatinine Ratio 13 (6-26); Blood Urea Nitrogen 8 mg/dL (8-23); Calcium 9.4 mg/dL (8.6-10.3); Carbon Dioxide 32 mEq/L (23-29); Chloride 103 mEq/L (98-107); Glucose 112 mg/dL (70-105); Osmolality,Calculated 287 (280-300); Potassium 3.8 mEq/L (3.5-5.1); Sodium 139 mEq/L (136-145); eGFR For African Americans > 60 (> 60); eGFR For Non-African Americans > 60 (> 60)
[2020-12-17 16:53] LABS: Troponin I < 0.03 ng/mL (< 0.04)
[2020-12-17] MEDS ORDERED: methylPREDNISolone 125 MG/2 ML VIAL IVP ONE (17:57)
[2020-12-17] MEDS ORDERED: Nitroglycerin 0.4 MG TAB.SUBL SL PRN (17:57)
[2020-12-17] MEDS ORDERED: Morphine Sulfate 2 MG/ML SYRINGE IVP PRN (19:38)
[2020-12-17] MEDS: Ipratropium/Albuterol Neb 3 ML IH SCH ×2 (20:11→22:44)
[2020-12-17] MEDS: MethylPREDNISolone 40 MG/ML VIAL IVP SCH (23:13)
[2020-12-18] MEDS: Ipratropium/Albuterol Neb 3 ML IH SCH ×2 (03:37→07:26)
[2020-12-18] MEDS: MethylPREDNISolone 40 MG/ML VIAL IVP SCH (05:09)
[2020-12-18 06:46] LABS: Basophils % 0.1 %; Hematocrit 40.9 % (35.3-44.9); Hemoglobin 13.4 g/dL (11.5-15.4); Immature Granulocytes % 0.3 % (0-4); Lymphocytes # 0.6 K/mcL (0.6-4.6); Lymphocytes % 8.9 %; Mean Corpuscular HGB Conc 32.8 g/dL (31.6-35.5); Mean Corpuscular Hemoglobin 34.4 pg (28.0-33.3); Mean Corpuscular Volume 104.9 fL (83.0-100.0); Monocytes # 0.1 K/mcL (0.0-1.3); Monocytes % 0.7 %; Neutrophils # 6.1 K/mcL (1.6-8.9); Platelet Count 282 K/mcL (140-400); Red Cell Distribution Width 13.2 % (11.5-14.5); White Blood Count 6.7 K/mcL (4.3-11.1)
[2020-12-18 06:48] VITALS: BP 120/63
[2020-12-18 07:00] LABS: BUN/Creatinine Ratio 19 (6-26); Blood Urea Nitrogen 12 mg/dL (8-23); Calcium 9.4 mg/dL (8.6-10.3); Carbon Dioxide 32 mEq/L (23-29); Chloride 102 mEq/L (98-107); Glucose 156 mg/dL (70-105); Osmolality,Calculated 293 (280-300); Potassium 4.2 mEq/L (3.5-5.1); Sodium 140 mEq/L (136-145); eGFR For African Americans > 60 (> 60); eGFR For Non-African Americans > 60 (> 60)
[2020-12-18] MEDS ORDERED: Aspirin 81 MG TAB.CHEW PO SCH (09:00)
== END 2020-12-18 10:46 | disposition home or self-care (01) ==
LOC: 3BNU 16:02 → EMEROOARM 16:02 → SUATTDRO 18:24 → 3BNU 19:41
PROVIDERS: ADMIT Internal Medicine; ATTEND Registered Nurse

== ENCOUNTER 2021-09-03 19:19 | Observation (INO) ==
[2021-09-03 20:21] LABS: Basophils % 0.3 %; Eosinophils # 0.1 K/mcL (0.0-0.6); Eosinophils % 1.1 %; Hematocrit 37.6 % (35.3-44.9); Immature Granulocytes % 0.4 % (0-4); Lymphocytes # 1.4 K/mcL (0.6-4.6); Lymphocytes % 17.8 %; Mean Corpuscular HGB Conc 31.9 g/dL (31.6-35.5); Mean Corpuscular Hemoglobin 34.7 pg (28.0-33.3); Mean Corpuscular Volume 108.7 fL (83.0-100.0); Mean Platelet Volume 10.8 fL (9.4-12.4); Monocytes # 0.7 K/mcL (0.0-1.3); Monocytes % 8.7 %; Neutrophils # 5.4 K/mcL (1.6-8.9); Platelet Count 188 K/mcL (140-400); Red Blood Count 3.46 M/mcL (3.82-4.97); Red Cell Distribution Width 13.8 % (11.5-14.5); Segmented Neutrophils % 71.7 %; White Blood Count 7.6 K/mcL (4.3-11.1)
[2021-09-03 20:23] LABS: INR 1.1; Prothrombin Time 12.1 Seconds (9.4-12.1)
[2021-09-03] MEDS ORDERED: predniSONE 20 MG TABLET PO ONE (20:31)
[2021-09-03] MEDS ORDERED: Ipratropium/Albuterol Neb 3 ML IH ONE (20:31)
[2021-09-03 20:32] LABS: BUN/Creatinine Ratio 11 (6-26); Blood Urea Nitrogen 6 mg/dL (8-23); Calcium 8.9 mg/dL (8.6-10.3); Carbon Dioxide 34 mEq/L (23-29); Chloride 101 mEq/L (98-107); Glucose 97 mg/dL (70-105); Osmolality,Calculated 286 (280-300); Potassium 3.6 mEq/L (3.5-5.1); Sodium 139 mEq/L (136-145); eGFR For African Americans > 60 (> 60); eGFR For Non-African Americans > 60 (> 60)
[2021-09-03 20:33] LABS: Troponin I < 0.03 ng/mL (< 0.04)
[2021-09-03] MEDS ORDERED: Aspirin 325 MG TABLET PO ONE (20:52)
[2021-09-03 21:58] LABS: Influenza A PCR Negative (Negative); Influenza B PCR Negative (Negative); Resp. Syncytial Virus PCR Negative (Negative)
[2021-09-03 21:59] LABS: SARS-CoV-2 by PCR (In House) Negative (Negative)
[2021-09-03] MEDS ORDERED: Acetaminophen 325 MG TABLET PO PRN (23:16)
[2021-09-03] MEDS ORDERED: Naloxone 0.4 MG/ML INJ IVP PRN (23:16)
[2021-09-03] MEDS ORDERED: Ondansetron 4 MG/2 ML VIAL IVP PRN (23:16)
[2021-09-03] MEDS ORDERED: Melatonin 3 MG TABLET PO PRN (23:16)
[2021-09-03] MEDS ORDERED: *HR* Labetalol 20 MG/4 ML SYRINGE IVP ONE (23:28)
[2021-09-03] MEDS ORDERED: hydrALAZINE 10 MG TABLET PO PRN (23:55)
[2021-09-04 02:01] LABS: Basophils % 0.2 %; Eosinophils % 0.2 %; Hematocrit 37.1 % (35.3-44.9); Immature Granulocytes % 0.4 % (0-4); Lymphocytes # 0.5 K/mcL (0.6-4.6); Lymphocytes % 6.5 %; Mean Corpuscular HGB Conc 32.3 g/dL (31.6-35.5); Mean Corpuscular Hemoglobin 34.7 pg (28.0-33.3); Mean Corpuscular Volume 107.2 fL (83.0-100.0); Monocytes # 0.2 K/mcL (0.0-1.3); Monocytes % 2.4 %; Neutrophils # 7.4 K/mcL (1.6-8.9); Nucleated Red Blood Cells 0.2 /100 WBC (0); Platelet Count 181 K/mcL (140-400); Red Blood Count 3.46 M/mcL (3.82-4.97); Red Cell Distribution Width 13.7 % (11.5-14.5); Segmented Neutrophils % 90.3 %; White Blood Count 8.2 K/mcL (4.3-11.1)
[2021-09-04 02:24] LABS: Alanine Aminotransferase 7 Units/L (7-52); Albumin/Globulin Ratio 1.7 (1.1-2.2); Alkaline Phosphatase 50 Units/L (34-104); Aspartate Amino Transferase 10 Units/L (13-39); BUN/Creatinine Ratio 13 (6-26); Bilirubin,Total 0.9 mg/dL (0.3-1.0); Blood Urea Nitrogen 6 mg/dL (8-23); Calcium 8.7 mg/dL (8.6-10.3); Carbon Dioxide 32 mEq/L (23-29); Chloride 100 mEq/L (98-107); Globulin 2.4 g/dL (2.4-3.5); Glucose 115 mg/dL (70-105); Magnesium 1.8 mg/dL (1.6-2.6); Osmolality,Calculated 285 (280-300); Phosphorous 3.6 mg/dL (2.7-4.5); Potassium 3.9 mEq/L (3.5-5.1); Sodium 138 mEq/L (136-145); Total Protein 6.4 g/dL (6.4-8.9); eGFR For African Americans > 60 (> 60); eGFR For Non-African Americans > 60 (> 60)
[2021-09-04] MEDS ORDERED: Albuterol 2.5 MG/3 ML NEBULIZER IH PRN (05:49)
[2021-09-04] MEDS ORDERED: *HR* Heparin 5,000 UNIT/ML VIAL SQ SCH (06:00)
[2021-09-04] MEDS ORDERED: Azithromycin 500 MG in D5% in Water 250 ML IVPB SCH (06:00)
[2021-09-04] MEDS ORDERED: Regadenoson 0.4 MG/5 ML SYRINGE IVP ONE (06:56)
[2021-09-04] MEDS ORDERED: predniSONE 20 MG TABLET PO SCH (09:00)
[2021-09-04] MEDS: Ipratropium/Albuterol Neb 3 ML IH SCH ×2 (10:05→15:39)
[2021-09-04 10:39] VITALS: TEMP 97.9; O2SAT 99
[2021-09-04] MEDS ORDERED: lisinopriL 5 MG TABLET PO SCH ×2 (12:30→12:45)
[2021-09-04 15:44] VITALS: PULSE 65
[2021-09-04 16:40] VITALS: BP 114/52
== END 2021-09-04 18:14 | disposition home or self-care (01) ==
LOC: 3BNU 19:19 → EMEROOARM 19:19 → 3BNU 22:30
PROVIDERS: ADMIT Family Medicine; ATTEND Family Medicine

== ENCOUNTER 2022-02-20 03:43 | Inpatient (IN) ==
[2022-02-20] MEDS ORDERED: methylPREDNISolone 125 MG/2 ML VIAL IVP ONE (03:59)
[2022-02-20 04:35] LABS: Basophils % 0.4 %; Eosinophils # 0.1 K/mcL (0.0-0.6); Eosinophils % 0.9 %; Hematocrit 43.1 % (35.3-44.9); Hemoglobin 14.3 g/dL (11.5-15.4); Immature Granulocytes % 0.1 % (0-4); Lymphocytes # 1.4 K/mcL (0.6-4.6); Lymphocytes % 20.1 %; Mean Corpuscular HGB Conc 33.2 g/dL (31.6-35.5); Mean Corpuscular Hemoglobin 34.3 pg (28.0-33.3); Mean Corpuscular Volume 103.4 fL (83.0-100.0); Mean Platelet Volume 9.4 fL (9.4-12.4); Monocytes # 1.1 K/mcL (0.0-1.3); Monocytes % 15.7 %; Neutrophils # 4.4 K/mcL (1.6-8.9); Platelet Count 280 K/mcL (140-400); Red Blood Count 4.17 M/mcL (3.82-4.97); Red Cell Distribution Width 13.4 % (11.5-14.5); Segmented Neutrophils % 62.8 %
[2022-02-20] MEDS ORDERED: Ipratropium/Albuterol Neb 3 ML IH ONE (04:47)
[2022-02-20 05:11] LABS: BUN/Creatinine Ratio 14 (6-26); Blood Urea Nitrogen 8 mg/dL (8-23); Carbon Dioxide 40 mEq/L (23-29); Chloride 89 mEq/L (98-107); Glucose 105 mg/dL (70-105); Osmolality,Calculated 275 (280-300); Potassium 3.6 mEq/L (3.5-5.1); Sodium 133 mEq/L (136-145); Troponin I 0.04 ng/mL (< 0.04)
[2022-02-20] MEDS ORDERED: Naloxone 0.4 MG/ML INJ IVP PRN (05:34)
[2022-02-20] MEDS ORDERED: Ondansetron 4 MG/2 ML VIAL IVP PRN (05:34)
[2022-02-20] MEDS ORDERED: Acetaminophen 325 MG TABLET PO PRN (05:34)
[2022-02-20] MEDS ORDERED: Aspirin 325 MG TABLET PO ONE (05:57)
[2022-02-20] MEDS ORDERED: Nicotine 14 MG PATCH.TD24 TD PRN (06:09)
[2022-02-20] MEDS ORDERED: Nitroglycerin 0.4 MG TAB.SUBL SL PRN (06:13)
[2022-02-20] MEDS: *HR* Heparin 5,000 UNIT/ML VIAL SQ SCH ×3 (06:39→20:26)
[2022-02-20] MEDS: Azithromycin 500 MG in 0.9 % Sodium Chloride 250 ML IVPB SCH (06:42)
[2022-02-20 06:58] LABS: VBG HCO3 39 mEq/L (21-27); VBG PCO2 87 mmHg (41-51); VBG PH 7.26 pH Units (7.32-7.42); VBG PO2 42 mmHg (25-50)
[2022-02-20 07:16] LABS: Adenovirus Not Detected (Not Detect); Bordetella Pertussis Not Detected (Not Detect); Chlamydophila pneumoniae Not Detected (Not Detect); Coronavirus 229E Not Detected (Not Detect); Coronavirus HKU1 Not Detected (Not Detect); Coronavirus NL63 Not Detected (Not Detect); Coronavirus OC43 Not Detected (Not Detect); Human Metapneumovirus Not Detected (Not Detect); Human Rhinovirus/Enterovirus Not Detected (Not Detect); Influenza A Subtype 2009 H1 Not Detected (Not Detect); Influenza B Not Detected (Not Detect); Mycoplasma pneumoniae Not Detected (Not Detect); Parainfluenza Virus 1 Not Detected (Not Detect); Parainfluenza Virus 2 Not Detected (Not Detect); Parainfluenza Virus 3 Not Detected (Not Detect); Parainfluenza Virus 4 Not Detected (Not Detect); Respiratory Syncytial Virus Not Detected (Not Detect); SARS-CoV-2 Not Detected (Not Detect)
[2022-02-20] MEDS: Ipratropium/Albuterol Neb 3 ML IH SCH ×5 (07:36→23:51)
[2022-02-20 08:20] LABS: ABG Base Excess 7 mEq/L (-2 to 3); ABG HCO3 36 mEq/L (21-27); ABG Oxygen Saturation 90 % (95-98); ABG PCO2 72 mmHg (35-45); ABG PO2 68 mmHg (85-104); ABG TCO2 38 mEq/L (20-26)
[2022-02-20] MEDS ORDERED: MethylPREDNISolone 40 MG/ML VIAL IVP SCH (10:00)
[2022-02-20 11:13] LABS: ABG Base Excess 6 mEq/L (-2 to 3); ABG HCO3 33 mEq/L (21-27); ABG Oxygen Saturation 95 % (95-98); ABG PCO2 60 mmHg (35-45); ABG PH 7.35 pH Units (7.32-7.45); ABG PO2 84 mmHg (85-104); ABG TCO2 35 mEq/L (20-26)
[2022-02-20] MEDS: MethylPREDNISolone 40 MG/ML VIAL IVP SCH ×2 (11:23→19:42)
[2022-02-21 03:41] LABS: Hematocrit 37.3 % (35.3-44.9); Hemoglobin 12.9 g/dL (11.5-15.4); Mean Corpuscular HGB Conc 34.6 g/dL (31.6-35.5); Mean Corpuscular Hemoglobin 34.7 pg (28.0-33.3); Mean Corpuscular Volume 100.3 fL (83.0-100.0); Mean Platelet Volume 9.3 fL (9.4-12.4); Platelet Count 296 K/mcL (140-400); Red Blood Count 3.72 M/mcL (3.82-4.97); Red Cell Distribution Width 13.2 % (11.5-14.5); White Blood Count 6.7 K/mcL (4.3-11.1)
[2022-02-21 04:00] LABS: BUN/Creatinine Ratio 29 (6-26); Blood Urea Nitrogen 15 mg/dL (8-23); Carbon Dioxide 37 mEq/L (23-29); Chloride 89 mEq/L (98-107); Glucose 97 mg/dL (70-105); Magnesium 1.9 mg/dL (1.6-2.6); Osmolality,Calculated 279 (280-300); Phosphorous 2.6 mg/dL (2.7-4.5); Potassium 3.5 mEq/L (3.5-5.1); Sodium 134 mEq/L (136-145)
[2022-02-21] MEDS: Ipratropium/Albuterol Neb 3 ML IH SCH ×6 (04:31→23:36)
[2022-02-21] MEDS: MethylPREDNISolone 40 MG/ML VIAL IVP SCH ×2 (04:46→11:45)
[2022-02-21] MEDS: Azithromycin 500 MG in 0.9 % Sodium Chloride 250 ML IVPB SCH (04:46)
[2022-02-21] MEDS: *HR* Heparin 5,000 UNIT/ML VIAL SQ SCH ×3 (04:46→21:08)
[2022-02-21] MEDS ORDERED: Gabapentin 300 MG CAPSULE PO PRN (08:25)
[2022-02-21] MEDS ORDERED: Potassium Phosphate 44 MEQ in 0.9 % Sodium Chloride 250 ML IVPB ONE (08:27)
[2022-02-21] MEDS ORDERED: *HR* Metoprolol 5 MG/5 ML VIAL IVP ONE (09:10)
[2022-02-21] MEDS: lisinopriL 5 MG TABLET PO SCH (09:56)
[2022-02-21] MEDS: Benzonatate 100 MG CAPSULE PO PRN (17:41)
[2022-02-21] MEDS: Budesonide/Formoterol 160/4.5 1 PUFF INH IH SCH (20:01)
[2022-02-22 03:07] LABS: Basophils % 0.2 %; Immature Granulocytes % 0.6 % (0-4); Lymphocytes # 1.2 K/mcL (0.6-4.6); Lymphocytes % 12.2 %; Mean Corpuscular HGB Conc 33.3 g/dL (31.6-35.5); Mean Platelet Volume 9.8 fL (9.4-12.4); Monocytes % 9.9 %; Neutrophils # 7.8 K/mcL (1.6-8.9); Platelet Count 283 K/mcL (140-400); Red Blood Count 3.53 M/mcL (3.82-4.97); Red Cell Distribution Width 13.6 % (11.5-14.5); Segmented Neutrophils % 77.1 %; White Blood Count 10.1 K/mcL (4.3-11.1)
[2022-02-22 03:33] LABS: BUN/Creatinine Ratio 28 (6-26); Blood Urea Nitrogen 19 mg/dL (8-23); Calcium 8.8 mg/dL (8.6-10.3); Carbon Dioxide 40 mEq/L (23-29); Chloride 89 mEq/L (98-107); Glucose 93 mg/dL (70-105); Osmolality,Calculated 280 (280-300); Potassium 3.5 mEq/L (3.5-5.1); Sodium 134 mEq/L (136-145)
[2022-02-22] MEDS: Ipratropium/Albuterol Neb 3 ML IH SCH ×3 (04:11→10:32)
[2022-02-22] MEDS: *HR* Heparin 5,000 UNIT/ML VIAL SQ SCH (05:24)
[2022-02-22] MEDS ORDERED: MethylPREDNISolone 40 MG/ML VIAL IVP SCH (06:00)
[2022-02-22] MEDS: Budesonide/Formoterol 160/4.5 1 PUFF INH IH SCH (07:57)
[2022-02-22] MEDS: lisinopriL 5 MG TABLET PO SCH (08:11)
[2022-02-22] MEDS: Benzonatate 100 MG CAPSULE PO PRN (08:11)
[2022-02-22] MEDS ORDERED: Azithromycin 250 MG TABLET PO SCH (09:00)
[2022-02-22 09:11] VITALS: BP 117/55; PULSE 76; TEMP 97.3
[2022-02-22 10:33] VITALS: O2SAT 94
== END 2022-02-22 14:14 | disposition home or self-care (01) | DRG 140 ==
LOC: EMEROOARM 03:43 → 3BNU 03:43 → SUATTDRO 05:34 → 3BNU 05:59 → 2NENU 14:04
PROVIDERS: ADMIT Internal Medicine; ATTEND Internal Medicine